=== PATIENT | male | born 1970 | race Caucasian/White ===

== ENCOUNTER 2021-09-26 08:31 | Emergency (ER) | payer BC ==
[2021-09-26] MEDS ORDERED: KETOROLAC 30 MG/ML 1 ML VIAL IM STA (09:13)
--- NOTE | 2021-09-26 09:39 | ED ---
Back Pain HPI - General Chief Complaint: Back Pain/Injury Stated Complaint: fall from ladder 10' Time Seen by Provider: 09/26/21 08:58 Source: patient, RN notes reviewed Mode of arrival: ambulatory Limitations: no limitations - History of Present Illness Initial Comments: Patient is a 51-year-old male with history of hypertension, presenting to the emergency department with concerns of low back pain and abdominal pain 4 days. Patient states 4 days ago, on Monday evening, he fell off of the wrist about 10 feet. He landed on his back. He did have a relief for her backpack on his back when he landed. He states he felt like he got the wind knocked out of him, he did not lose consciousness. He states he did not hit his head. Since then, he's been having spasms and intermittent low back pain. He does have a bruise on his right butt cheek. Over the past 4 days he's been having intermittent abdominal pains, and he has not had a bowel movement in the last 4 days. He has been trying to drink more water, carbonated beverages without improvement in his bowel movements. He states today the pain worsened in his abdomen and he wanted to come in to be evaluated. He states the spasms in his back has still been going on but he feels like he is able to move a little bit more than the last few days. He currently rates the pain about a 5/10, he has been taking Tylenol and Motrin. He denies any saddle paresthesias, no numbness and tingling down his lower extremities. He denies any bowel or bladder incontinence. Patient denies any prior surgeries to his abdomen or his back. He has no further complaints at this time. Patient's vital signs are stable upon arrival. - Related Data Allergies Allergy/AdvReac Type Severity Reaction Status Date / Time No Known Allergies Allergy Verified 09/26/21 08:36 Review of Systems ROS Statement: Those systems with pertinent positive or pertinent negative responses have been documented in the HPI. ROS Other: All systems not noted in ROS Statement are negative. Past Medical History Past Medical History: Hypertension History of Any Multi-Drug Resistant Organisms: None Reported Past Surgical History: Orthopedic Surgery Additional Past Surgical History / Comment(s): sinus surgery Past Psychological History: No Psychological Hx Reported Smoking Status: Never smoker Past Alcohol Use History: None Reported Past Drug Use History: None Reported General Exam - General Exam Comments Initial Comments: GENERAL: Patient is well-developed and well-nourished. Patient is nontoxic and in no acute distress. HEAD: Atraumatic, normocephalic. There are no hematomas. EYES: Pupils equal round and reactive to light, extraocular movements intact, sclera anicteric, conjunctiva are normal. Eyelids were unremarkable. ENT: Nares patent, oropharynx clear without exudates. Moist mucous membranes. NECK: Normal range of motion, supple without lymphadenopathy or JVD. He has no midline tenderness. LUNGS: Unlabored respirations. Breath sounds clear to auscultation bilaterally and equal. No wheezes rales or rhonchi. HEART: Regular rate and rhythm without murmurs, rubs or gallops. ABDOMEN: Soft, generalized abdominal tenderness, no specific area, mildly distended normoactive bowel sounds. No guarding, no rebound. No masses appreciated. MUSCULOSKELETAL: Normal extremities with adequate strength and normal range of motion, no pitting or edema. No clubbing or cyanosis. He has no pain on palpation of the lumbar spine, he does have a large bruise noted to the right butt cheek. NEUROLOGICAL: Patient is alert and oriented x 3. Motor and sensory are also intact. Cranial nerves II through XII grossly intact. Symmetrical smile. Normal speech, normal gait. PSYCH: Normal mood, normal affect. SKIN: Warm, Dry, normal turgor, no rashes or lesions noted. Limitations: no limitations Course Vital Signs 09/26/21 08:33 Temperature 98.5 F Pulse Rate 88 Respiratory 18 Rate Blood Pressure 163/98 O2 Sat by Pulse 96 Oximetry Medical Decision Making - Medical Decision Making Patient is a 51-year-old male with history of hypertension, presenting with low back pain and spasms as well as no bowel movement for the last 4 days. He had a fall off a ladder about 4 days ago. He's been taking Tylenol Motrin for discomfort. No head injury, is not on blood thinners. I did a CT abdomen and pelvis as well as the lumbar spine. No acute findings in the abdomen or the pelvis. Lumbar CT does show an acute comminuted slightly displaced fracture through the L1 vertebrae with moderate height loss at 30-40%. There is also nondisplaced fracture through the superior right L2 vertebrae. I did discuss these findings with on-call ortho Dr. Tadeo who is okay with patient following up with Dr. Gallardo tomorrow. Patient has no acute neuro deficits, no saddle paresthesia, no bowel or bladder incontinence. He has been constipated. Did recommend MiraLAX over the next 1-2 weeks in addition to a laxative for today and tomorrow. Increase his water intake. I will give him tramadol for more severe pain, he continue with Tylenol and Motrin for more mild to moderate pain. He is agreeable to this plan of care. Return parameters were discussed with him and he verbalized understanding. Case discussed Dr. Rose. Disposition Clinical Impression: Fall, L1 vertebral fracture, L2 vertebral fracture, Constipation Disposition: HOME SELF-CARE Condition: Stable Instructions (If sedation given, give patient instructions): Thoracolumbar Fracture (ED), Constipation (ED) Additional Instructions: Please return to the Emergency Department if symptoms worsen or any other concerns. Recommend MiraLAX for the next 1-2 weeks to help improve regularity. Recommend a laxative such as Dulcolax over the next 1-2 days. Continue to increase your water intake. Continue with Tylenol and/or Motrin for pain control, may take tramadol for more severe pain. Follow-up with orthopedic doctor tomorrow as discussed. Is patient prescribed a controlled substance at d/c from ED?: No Referrals: Doug Holcomb Jr, DO [Primary Care Provider] - 1-2 days Nadeen Agrawal DO [Doctor of Osteopathic Medicine] - 1-2 days Time of Disposition: 10:59
--- NOTE | 2021-09-26 10:18 | CT ---
EXAMINATION TYPE: CT abdomen pelvis wo con, CT lumbar spine wo con DATE OF EXAM: 09/26/2021 HISTORY: Fall from ladder 4 days ago, pain. Unable to have a BM (accession [id number]), Fall from ladde r 4 days ago, pain. Unable to have a BM (accession [id number]) abdominal and back pain. CT DLP: 2264.4 mGycm. Automated Exposure Control for Dose Reduction was Utilized. TECHNIQUE: CT scan of the abdomen and pelvis and lumbar spine are all performed without oral or IV c ontrast. COMPARISON: NONE FINDINGS: Within the limitations of a non-contrast study, the following observations are made. LUNG BASES: Subareolar nodular gynecomastia bilaterally is present. Mild bibasilar linear scarring an d/or atelectasis. LIVER/GB: A 1.4 cm thin-walled cyst posterior right hepatic lobe axial image 21.. PANCREAS: No significant abnormality is seen. SPLEEN: No significant abnormality is seen. ADRENALS: No significant abnormality is seen. KIDNEYS: Single 2 mm nonobstructing calculus lower pole left kidney, image 79. No hydronephrosis bila terally. No right-sided renal calculus. BOWEL: No significant abnormality is seen. GENITAL ORGANS: Mildly enlarged prostate bulging on bladder base with central calcifications. LYMPH NODES: No greater than 1cm abdominal or pelvic lymph nodes are appreciated. LUMBAR SPINE: There is acute comminuted nondisplaced burst type fracture through the L1 vertebra with mild/moderate height loss estimated 30-40%. Fracture line extends to the posterior vertebral body margin with mini mal posterior displacement into the anterior spinal canal estimated 3 to 4 mm axial image 17 along th e left aspect . Fracture at this level extends to involve the right sided lateral elements deep aspec t of the right L1 transverse process axial image 17 for reference. There is additional acute fracture injury through the superior left T2 vertebra axial image 24 corresponding to sagittal image 46 with mild height loss and anterior wedging estimated near 10 to 20%. No posterior extension or retropulsio n at this level. There is peak of curvature at the thoracolumbar junction indenting the anterior spin al canal. Mid to lower lumbar levels show mild to moderate broad disc bulges mildly effacing anterior thecal sa c on sagittal images. No acute fracture findings. IMPRESSION: 1. Acute comminuted slightly displaced fracture through the L1 vertebra with mild to moderate height loss estimated 30-40%. Posterior extension with slight retropulsion along the right aspect effacing t he anterolateral thecal sac 3 to 4 mm. There is fracture extension into the right lateral elements no norma. 2. Acute nondisplaced fracture through the superior right L2 vertebra with mild height loss estimated 10-20%. 3. No acute postmenopausal findings within the abdomen or pelvis itself on noncontrast imaging.
[2021-09-26] MEDS ORDERED: traMADol 50 MG STARTER PACK 3 TAB BTL PO STA (10:59)
[2021-09-26 11:09] VITALS: BP 139/99; PULSE 80; RESP 20; TEMP 98
== END 2021-09-26 11:45 | disposition home or self-care (01) ==
LOC: EC 08:31
DX: S32.019A Unspecified fracture of first lumbar vertebra, initial encounter for closed fracture (principal); S32.029A Unspecified fracture of second lumbar vertebra, initial encounter for closed fracture; K59.00 Constipation, unspecified; R10.84 Generalized abdominal pain; I10 Essential (primary) hypertension; W11.XXXA Fall on and from ladder, initial encounter
CPT/HCPCS: 72131; 74176; 99284; 96372; J1885